=== PATIENT | female | born 1985 | race Hispanic/Latino ===

== ENCOUNTER 2017-11-05 11:59 | Day surgery (SDC) | payer MEDICAID ==
[~2017-11-05 11:59] MED LIST: DEMEROL IV PRN; NACL 0.9% 1000 ML 1,000 ML IV SCH; TORADOL IV PRN; VERSED IV NR; ZOFRAN IV PRN
[2017-11-05] MEDS ORDERED: NACL BACTERIOSTATIC INFILTRATI ONE (12:05)
--- NOTE | 2017-11-05 12:36 | Anesthesia Consultation ---
Anesthesia Consult and Med Hx Date of service: 11/05/17 - Airway Anesthetic Teeth Evaluation: Good ROM Head & Neck: Adequate Mental/Hyoid Distance: Adequate Mallampati Class: Class II Intubation Access Assessment: Good - Pulmonary Exam CTA: Yes - Cardiac Exam Cardiac Exam: No Murmur - Pre-Operative Health Status ASA Pre-Surgery Classification: ASA2 Proposed Anesthetic Plan: General - Pulmonary Hx Smoking: Yes (1/2 ppd h/o bronchitis, quit 2 yrs ago) Hx Asthma: No SOB: No Hx Pneumonia: Yes (2013) Hx Sleep Apnea: No - Central Nervous System Hx Seizures: Yes ([facility] 02/2015 [facility]) Hx Psychiatric Problems: Yes - Hematic Hx Anemia: Yes - Other Systems Hx Alcohol Use: No Hx Substance Use: No Hx Cancer: No
--- NOTE | 2017-11-05 12:36 | Anesthesia Day of Surgery ---
Anesthesia Day of Surgery - Day of Surgery Patient Examined: Yes Patient H&P Reviewed: Yes Patient is NPO: Yes
--- NOTE | 2017-11-05 13:49 | Post Operative Note ---
Pre-op diagnosis: kidney stones L distal ureteral stone Post-op diagnosis: same Findings: as above Procedure: eswl L ureter Anesthesia: GETA Surgeon: JOHNIE BASSETT Estimated blood loss: none Pathology: none Condition: stable Disposition: PACU
--- NOTE | 2017-11-05 13:50 | Discharge Summary ---
Short Stay Discharge Plan Activity: other (no straining ) Weight Bearing Status: Full Weight Bearing Diet: low fat, low cholesterol, low salt Special Instructions: other (inc fluids ) Follow up with: KRISS REICH MD [Primary Care Provider] - 7 Days YAHAIRA OLMOS MD [Staff Physician] - 7 Days
[2017-11-05] MEDS ORDERED: ANCEF/STERILE WATER 2 GM/20 ML IV NR (14:00)
[2017-11-05] MEDS ORDERED: DIPRIVAN 10 MG/ML IV ONE (14:07)
[2017-11-05] MEDS ORDERED: ZOFRAN ONE (14:29)
[2017-11-05] MEDS ORDERED: LOPRESSOR IV ONE (14:29)
[2017-11-05] MEDS ORDERED: ZEMURON IV ONE (14:30)
--- NOTE | 2017-11-05 14:58 | Operative Report ---
PREOPERATIVE DIAGNOSIS: Previous left ureteral stone with stenting. POSTOPERATIVE DIAGNOSIS: Previous left ureteral stone with stenting. PROCEDURE: Left ESWL of the ureteral stones. SURGEON: Ritchie Baker MD ANESTHESIA: General. FINDINGS: This is a woman with a 7 mm distal stone at the junction of the mid and lower ureter. It is along the double-J stent and is well seen on fluoroscopy. The patient now presents for lithotripsy. DESCRIPTION OF PROCEDURE: The patient was brought to lithotripsy and placed on the table. Following the induction of anesthesia, she was moderately obese and we were able to still see the stone along with double-J stent. Shocks were begun at 1 kV increased to maximum of 6 kV. A total of 3000 shocks were given. Stent was left in, but the patient understands that she may need further procedures including ureteroscopy, even percutaneous nephrostomy or open surgery or follow up lithotripsy. She needs follow up for stent removal and reevaluation of the stone, but we had excellent visualization throughout the procedure. JOB# [id number] CHICA/LIANNE
[2017-11-05] MEDS ORDERED: ZOFRAN IV PRN (15:27)
[2017-11-05] MEDS: DILAUDID IV PRN ×4 (15:30→16:02)
[2017-11-05] MEDS ORDERED: DILAUDID IV SCH (16:31)
[2017-11-05] MEDS ORDERED: NORCO 10/325 PO SCH (16:33)
[2017-11-05 19:13] VITALS: BP 119/76
== END 2017-11-05 18:45 | disposition home or self-care (01) ==
LOC: OR 11:59
PROVIDERS: ATTEND Urology
DX: N13.2 Hydronephrosis with renal and ureteral calculous obstruction (principal); E66.9 Obesity, unspecified; I10 Essential (primary) hypertension; M19.90 Unspecified osteoarthritis, unspecified site; G43.909 Migraine, unspecified, not intractable, without status migrainosus; G40.909 Epilepsy, unspecified, not intractable, without status epilepticus; M79.7 Fibromyalgia; F32.9 Major depressive disorder, single episode, unspecified; Z68.34 Body mass index [BMI] 34.0-34.9, adult; Z79.899 Other long term (current) drug therapy; Z88.1 Allergy status to other antibiotic agents; Z88.5 Allergy status to narcotic agent; Z88.8 Allergy status to other drugs, medicaments and biological substances
CPT/HCPCS: 50590; 81025; J0690; J1170; J2175; J2250; J2405; J2704; J7030